=== PATIENT | male | born 2000 | race Caucasian/White ===

== ENCOUNTER 2023-11-02 20:08 | Emergency (ER) | payer BC ==
[~2023-11-02] VITALS: Ht 190.5 cm; Wt 100.0 kg
[2023-11-02 22:06] VITALS: BP 149/94; PULSE 100; RESP 18; TEMP 98.3; O2SAT 98
[2023-11-02] MEDS ORDERED: RALT400T MT (23:42)
[2023-11-02] MEDS ORDERED: EMTR1TAB11 MT (23:42)
[2023-11-02] MEDS: RALTEGRAVIR 400 MG TABLET PO SCH (23:45)
[2023-11-02] MEDS: EMTRICITABINE 200MG CAPSULE PO ONE (23:45)
[2023-11-02] MEDS: TENOFOVIR 300MG TABLET PO ONE (23:45)
[2023-11-02] MEDS ORDERED: DOXY100T2 MT (23:52)
[2023-11-03] LABS: CLARITY URINE CLEAR (CLEAR); COLOR URINE YELLOW (YELLOW); GLUCOSE URINE NEGATIVE (NEGATIVE); KETONES URINE NEGATIVE (NEGATIVE); LEUKOCYTE ESTERASE URINE NEGATIVE (NEGATIVE); NITRITE URINE NEGATIVE (NEGATIVE); OCCULT BLOOD URINE NEGATIVE (NEGATIVE); PROTEIN URINE NEGATIVE (NEGATIVE); SPECIFIC GRAVITY URINE 1.008 (1.005-1.030); UROBILINOGEN URINE 0.2 E.U./dL (0.2-1.0)
[2023-11-03] MEDS: CEFTRIAXONE SODIUM 500MG VIAL IM ONE (00:05)
[2023-11-05 04:13] LABS: CHLAMYDIA TRACHOMATIS NAA Negative (Negative); NEISSERIA GONORRHOEAE NAA Negative (Negative)
== END 2023-11-03 00:10 | disposition home or self-care (01) ==
LOC: ER 20:08
DX: A64 Unspecified sexually transmitted disease (principal); B20 Human immunodeficiency virus [HIV] disease
CPT/HCPCS: 99284; 87491; 87591; 81003; 36415; 96372; J0696